=== PATIENT | female | born 1985 | race Caucasian/White ===

== ENCOUNTER 2022-02-14 06:06 | Day surgery (SDC) | payer MEDICAID ==
[~2022-02-14] VITALS: Ht 154.9 cm; Wt 90.7 kg
[2022-02-14] MEDS ORDERED: SIMETHICONE 40 MG/0.6 ML ML ONE (06:27)
[2022-02-14] MEDS ORDERED: MEPERIDINE 100 MG INJ. 100 MG/ML VIAL ONE (06:28)
[2022-02-14] MEDS ORDERED: MIDAZOLAM HCL 5 MG/5 ML VIAL ONE ×2 (06:28→08:57)
[2022-02-14] MEDS ORDERED: ONDANSETRON HCL 4 MG/2 ML VIAL ONE (08:42)
[2022-02-14 12:27] VITALS: BP_SYST 132
== END 2022-02-14 12:35 | disposition home or self-care (01) ==
LOC: SDS 06:06 → SMU 06:07 → SDS 12:35
PROVIDERS: ATTEND Internal Medicine Gastroenterology
DX: R19.4 Change in bowel habit (principal); K64.8 Other hemorrhoids; K29.50 Unspecified chronic gastritis without bleeding; R93.5 Abnormal findings on diagnostic imaging of other abdominal regions, including retroperitoneum; K21.9 Gastro-esophageal reflux disease without esophagitis; K44.9 Diaphragmatic hernia without obstruction or gangrene; Z79.899 Other long term (current) drug therapy; Z20.822 Contact with and (suspected) exposure to COVID-19
CPT/HCPCS: 36415 ×2; 45380; 43239; 87081; 88305; 88312; 88313; 99152; 99153; U0003; G0378; J2250; J2405; J2175